=== PATIENT | female | born 1955 ===

== ENCOUNTER 2020-10-17 13:38 | Emergency (ER) | payer SELFPAY ==
[~2020-10-17] VITALS: Ht 172.7 cm; Wt 64.1 kg
[2020-10-17 13:44] VITALS: BP 148/95
== END 2020-10-17 16:04 | disposition home or self-care (01) ==
LOC: ED 15:45
DX: H00.012 Hordeolum externum right lower eyelid (principal)
CPT/HCPCS: 99283